=== PATIENT | female | born 1995 | race Caucasian/White ===

== ENCOUNTER 2020-06-07 10:53 | Emergency (ER) | payer OTHER ==
[~2020-06-07] VITALS: Ht 165.1 cm; Wt 49.4 kg
[2020-06-07 14:04] VITALS: BP 112/76
== END 2020-06-07 14:04 | disposition home or self-care (01) ==
LOC: ED 10:53
DX: R51.9 Headache, unspecified (principal); Z98.890 Other specified postprocedural states; Z91.018 Allergy to other foods
CPT/HCPCS: J0780; J2060; J7030